=== PATIENT | female | born 1965 | race Caucasian/White ===

== ENCOUNTER 2020-11-10 21:27 | Emergency (ER) | payer OTHER ==
[~2020-11-10] VITALS: Ht 162.6 cm; Wt 113.4 kg
[2020-11-10 21:58] VITALS: BP 128/77
--- NOTE | 2020-11-10 22:00 | NUR ---
TO LOBBY A/W BED AMBULATORY
[2020-11-10 22:39] LABS: BASOPHILS # (AUTO) 0.1 K/uL (0.00-0.22); BASOPHILS % (AUTO) 0.8 % (0.0-2.0); EOSINOPHILS # (AUTO) 0.2 K/uL (0-0.4); EOSINOPHILS % (AUTO) 1.5 % (0.0-4.0); HEMATOCRIT 41.8 % (36-48); HEMOGLOBIN 14.1 g/dL (12.0-16.0); LYMPHOCYTES # (AUTO) 2.6 K/uL (2.5-16.5); LYMPHOCYTES % (AUTO) 24.7 % (20.5-51.1); MEAN CORPUSCULAR HEMOGLOBIN 30 pg (27-31); MEAN CORPUSCULAR HGB CONC 34 g/dL (33-37); MEAN CORPUSCULAR VOLUME 89.4 fL (80-94); MONOCYTES # (AUTO) 0.6 K/uL (0.8-1.0); MONOCYTES % (AUTO) 5.9 % (1.7-9.3); NEUTROPHILS % (AUTO) 67.1 % (42.2-75.2); PLATELET COUNT (AUTO) 279 K/uL (140-450); RED BLOOD CELL COUNT(AUTO) 4.67 MIL/uL (4.20-5.40); RED CELL DISTRIBUTION WIDTH 12.8 % (11.6-13.7); WHITE BLOOD COUNT (AUTO) 10.5 K/uL (4.8-10.8)
[2020-11-10 22:41] LABS: APPEARANCE,URINE CLEAR (CLEAR); BILIRUBIN,URINE NEGATIVE (NEGATIVE); BLOOD, URINE 1+ (NEGATIVE); COLOR,URINE YELLOW (YELLOW); LEUKOCYTE ESTERASE ,URINE NEGATIVE (NEGATIVE); NITRITE, URINE NEGATIVE (NEGATIVE); UGLUCOSE NEGATIVE (NEGATIVE)
[2020-11-10 22:49] LABS: RBC,URINE 0-5 /HPF (0-5); WBC,URINE 0-5 /HPF (0-5)
[2020-11-10 22:53] LABS: ALBUMIN 3.6 g/dL (3.4-5.0); ANION GAP 7.1 (8-16); CARBON DIOXIDE 31.6 mmol/L (21-32); CREATININE 0.8 mg/dL (0.6-1.3); POTASSIUM 4.7 mmol/L (3.5-5.1); TOTAL BILIRUBIN 0.4 mg/dL (0.0-1.0)
--- NOTE | 2020-11-10 23:23 | NUR ---
PT TAKEN TO BED 6
--- NOTE | 2020-11-10 23:28 | NUR ---
55 Y/O FEMALE PRESENTED TO ED C/O LEFT FLANK PAIN SINCE YESTERDAY . PT STATES IT HAS BEEN PROGRESSIVELY GETTING WORSE AND NOW THE PAIN IS 8/10 SHARP / STABBING PAIN. PT SECONDARY C/O OF STABBING PAIN UPON INSPIRATION. NORMOACTIVE BOWEL SOUNDS. PT DENIES TENDERNESS IN ABD BUT C/O OF SLIGHT TENDERNESS UPON PALPATION OF LEFT FLANK. BL LUNG SOUNDS CLEAR THROUGHOUT. OXYGEN LEVEL 100% ON ROOM AIR. PT HAS BEEN TAKING IBUPROFEN W/ NO RELIEF. VSS. NO ACUTE DISTRESS NOTED. PT RESTING IN BED, LOCKED IN LOWEST POSITION, HOB ELEVATED, SIDE RAIL X 1. PMH: DM, HYPOTHYROID NKA
[2020-11-10 23:30] VITALS: BP 129/62
--- NOTE | 2020-11-11 01:00 | NUR ---
ERMD AT BEDSIDE FOR MEDICAL EVALUATION.
[2020-11-11] MEDS ORDERED: ACET-9800 PO (01:27)
[2020-11-11] MEDS ORDERED: LID5T TP (01:27)
[2020-11-11] MEDS ORDERED: IBUP-2213 PO (01:27)
--- NOTE | 2020-11-11 01:37 | NUR ---
Patient discharged with v/s stable. Written and verbal after care instructions given and explained. Patient alert, oriented and verbalized understanding of instructions. Ambulatory with steady gait. All questions addressed prior to discharge. ID band removed. Patient advised to follow up with PMD. Rx of TYLENOL, MOTRIN, LIDOCAINE PATCH given. Patient educated on indication of medication including possible reaction and side effects. Opportunity to ask questions provided and answered.
== END 2020-11-11 01:37 | disposition home or self-care (01) ==
LOC: MED 21:27
DX: R10.9 Unspecified abdominal pain (principal); R11.0 Nausea; E11.9 Type 2 diabetes mellitus without complications; E03.9 Hypothyroidism, unspecified
CPT/HCPCS: 36415; 80053; 81001; 81025; 83690; 85025; 87086; 99284